=== PATIENT | female | born 1970 ===

== ENCOUNTER 2017-11-10 12:24 | Emergency (ER) | payer SELFPAY ==
[2017-11-10 12:37] VITALS: BP 129/73; PULSE 69; RESP 17; TEMP 98.1; O2SAT 99
[2017-11-10] MEDS ORDERED: DiphenhydrAMINE 12.5 mg/5 ml LIQ UD (5 ml) PO STA (13:13)
--- NOTE | 2017-11-10 13:37 | C.PDOC ---
History Of Present Illness 46 year old female, whose PMHx includes chronic migraines, presents to the ED for evaluation of headache and skin rashes. Patient is from [facility] and states she was treated for her headaches with morphine and was subsequently switched to a Buprenorphine patch. Patient states she experiences palpations, dizziness and goes into "withdrawal" when she does not use her patch. She was evaluated by her PMD today, who referred her to the ED for evaluation of contact dermatitis and detox. Patient denies fever, chills, and has no other complaints at this time. Time Seen by Provider: 11/10/17 12:51 Chief Complaint (Nursing): Abnormal Skin Integrity History Per: Patient History/Exam Limitations: no limitations Onset/Duration Of Symptoms: Days Current Symptoms Are (Timing): Still Present Additional History Per: Patient Past Medical History Reviewed: Historical Data, Nursing Documentation, Vital Signs Vital Signs: Last Vital Signs Temp 98.1 F 11/10/17 12:32 Pulse 69 11/10/17 12:32 Resp 17 11/10/17 12:32 BP 129/73 11/10/17 12:32 Pulse Ox 99 11/10/17 18:14 - Medical History PMH: Migraine Surgical History: No Surg Hx Family History: States: Unknown Family Hx - Social History Hx Alcohol Use: No Hx Substance Use: No - Immunization History Hx Tetanus Toxoid Vaccination: No Hx Influenza Vaccination: No Hx Pneumococcal Vaccination: No Review Of Systems Constitutional: Negative for: Fever, Chills Cardiovascular: Positive for: Palpitations Skin: Positive for: Rash Neurological: Positive for: Headache, Dizziness Physical Exam - Physical Exam Appears: Non-toxic, No Acute Distress Skin: Warm, Dry, Other (erythema to areas underlying patch ) Head: Atraumatic, Normacephalic Eye(s): bilateral: Normal Inspection Oral Mucosa: Moist Neck: Supple Chest: Symmetrical, No Deformity, No Tenderness Cardiovascular: Rhythm Regular Respiratory: Normal Breath Sounds, No Rales, No Rhonchi, No Wheezing Extremity: Normal ROM, Capillary Refill (less than 2 seconds ) Neurological/Psych: Oriented x3, Normal Speech, Normal Cognition ED Course And Treatment O2 Sat by Pulse Oximetry: 99 (on RA) Pulse Ox Interpretation: Normal Medical Decision Making Medical Decision Making: Impression: 46 year old female with c/o headache and skin rash Plan: * CT Head * Benadryl PO * Reglan PO * reassess and disposition Progress: CT Head ordered and reviewed. Benadryl PO and Reglan PO administered. contact dermatitis- will treat supportive request for detox- not candidate for detox as per fellmongery worker. advise output fu. neuro intact pain improved. advise outpt fu return precautions. all info obtained via varying exceptionalities teacher. Disposition - Disposition Referrals: [facility] [Outside] [facility] [Outside] Guzman Brush MD [Staff Provider] - Disposition: HOME/ ROUTINE Disposition Time: 01:00 Condition: STABLE Additional Instructions: please follow up with your doctor/clinic and with specailist. you may need further testing as an outpatient. return to er with worsening symptoms . please discontinue the patches and discuss with your doctor some alternatives. Prescriptions: Acetaminophen/Butalbital/Caf [Fioricet] 1 tab PO Q8 PRN #20 tab PRN Reason: Headache DiphenhydrAMINE [Benadryl] 25 mg PO Q4 PRN #20 cap PRN Reason: Itching / Pruritus Hydrocortisone 1% Oint [Cortizone 1% Oint] 1 appl TP BID #1 tube Instructions: Headache, Adult, Contact Dermatitis (DC) Forms: [employer] (Haitian) Print Language: PAKISTANI - Clinical Impression Clinical Impression: Headache, Desire for detoxification - Scribe Statement The provider has reviewed the documentation as recorded by the Scribe (Beata Garcia) Provider Attestation: All medical record entries made by the Scribe were at my direction and personally dictated by me. I have reviewed the chart and agree that the record accurately reflects my personal performance of the history, physical exam, medical decision making, and the department course for this patient. I have also personally directed, reviewed, and agree with the discharge instructions and disposition.
--- NOTE | 2017-11-10 14:30 | CT ---
PROCEDURE: CT HEAD WITHOUT CONTRAST. HISTORY: nolan COMPARISON: None available. TECHNIQUE: Axial computed tomography images were obtained through the head/brain without intravenous contrast. Radiation dose: Total exam DLP = 863.7 mGy-cm. This CT exam was performed using one or more of the following dose reduction techniques: Automated exposure control, adjustment of the mA and/or kV according to patient size, and/or use of iterative reconstruction technique. FINDINGS: HEMORRHAGE: No intracranial hemorrhage. BRAIN: No mass effect or edema. No atrophy or chronic microvascular ischemic changes. VENTRICLES: Unremarkable. No hydrocephalus. CALVARIUM: Unremarkable. PARANASAL SINUSES: Unremarkable as visualized. No significant inflammatory changes. MASTOID AIR CELLS: Unremarkable as visualized. No inflammatory changes. OTHER FINDINGS: None. IMPRESSION: No acute intracranial pathology.
== END 2017-11-10 15:04 | disposition home or self-care (01) ==
LOC: C.ER 12:24
DX: R51 Headache (principal)

== ENCOUNTER 2017-11-27 11:19 | Inpatient (IN) | payer MEDICAID, SELFPAY ==
[2017-11-27 11:59] LABS: BASO % 0.9 % (0.0-2.0); EOS # 0.1 K/uL (0.0-0.7); EOS % 3.5 % (0.0-4.0); HEMOGLOBIN 13.3 g/dL (11.0-16.0); LYMPH # 1.8 K/uL (1.0-4.3); LYMPH % 43.9 % (20.0-40.0); MEAN CELL VOLUME 81.6 fL (81.0-99.0); MEAN CORPUSCULAR HGB CONC 34.3 g/dL (33.0-37.0); MEAN PLATELET VOLUME 7.7 fL (7.2-11.7); MONO # 0.3 K/uL (0.0-0.8); MONO % 6.8 % (0.0-10.0); NEUT # 1.8 K/uL (1.8-7.0); NEUT % 44.9 % (50.0-75.0); NRBC % 0.3 % (0.0-2.0); RBC 4.76 Mil/uL (3.80-5.20); RED CELL DISTRIBUTION WIDTH 15.8 % (11.5-14.5)
[2017-11-27 12:06] LABS: HCG,QUALITATIVE URINE NEGATIVE (NEGATIVE)
[2017-11-27 12:07] LABS: SQUAMOUS EPITHIAL 3 /hpf (0-5); URINE BACTERIA RARE (<OCC); URINE BILIRUBIN NEGATIVE (NEGATIVE); URINE BLOOD 3+ (NEGATIVE); URINE CLARITY Hazy (Clear); URINE COLOR Red (YELLOW); URINE GLUCOSE (UA) NORMAL (Normal); URINE LEUKOCYTE ESTERASE 3+ Leu/uL (Negative); URINE PROTEIN 2+ mg/dL (NEGATIVE); URINE UROBILINOGEN NORMAL mg/dL (0.2-1.0)
[2017-11-27 12:11] LABS: ALB/GLOB RATIO 1.2 (1.0-2.1); ALBUMIN 4.3 g/dL (3.5-5.0); ALT/SGPT 77 U/L (9-52); AST/SGOT 48 U/L (14-36); BLOOD UREA NITROGEN 17 mg/dL (7-17); GFR AFRICAN-AMERICAN > 60; GFR NON-AFRICAN AMERICAN > 60
--- NOTE | 2017-11-27 12:32 | C.PDOC ---
History Of Present Illness 47 y/o female presents to ED requesting detox from Morphine. Patient has been using Morphine for chronic headaches. She was then changed to the Buprenophine patch which she gets from [facility]. She changes the patch every 72 hours, last put one 3 days ago. Pt admits to feeling anxious and mild headache. Also notes swelling to hands and legs which she reports as secondary to withdrawal. Patient denies fever, chills, SI/HI, chest pain, sob, abdominal pain or any other physical complaints at this time. Time Seen by Provider: 11/27/17 11:28 Chief Complaint (Nursing): Substance Abuse History Per: Patient History/Exam Limitations: no limitations Onset/Duration Of Symptoms: Days Current Symptoms Are (Timing): Still Present Suicide/Self Injury Attempted (Context): None Modifying Factor(s): Narcotics Past Medical History Reviewed: Historical Data, Nursing Documentation, Vital Signs Vital Signs: Last Vital Signs Temp 98.3 F 11/27/17 14:52 Pulse 56 L 11/27/17 14:52 Resp 18 11/27/17 14:52 BP 120/70 11/27/17 14:52 Pulse Ox 100 11/27/17 14:52 - Medical History PMH: Migraine Surgical History: No Surg Hx Family History: States: No Known Family Hx - Social History Hx Alcohol Use: No Hx Substance Use: No - Immunization History Hx Tetanus Toxoid Vaccination: No Hx Influenza Vaccination: No Hx Pneumococcal Vaccination: No Review Of Systems Constitutional: Negative for: Fever, Chills Cardiovascular: Negative for: Chest Pain Respiratory: Negative for: Shortness of Breath Gastrointestinal: Negative for: Nausea, Vomiting Psych: Positive for: Anxiety, Withdrawal. Negative for: Suicidal ideation Physical Exam - Physical Exam Appears: Non-toxic, No Acute Distress Skin: Warm, Dry, No Rash Head: Atraumatic, Normacephalic Eye(s): bilateral: Normal Inspection, EOMI Nose: Normal Oral Mucosa: Moist Neck: Normal ROM, Supple Chest: Symmetrical Cardiovascular: Rhythm Regular Respiratory: Normal Breath Sounds, No Accessory Muscle Use, No Rales, No Rhonchi , No Wheezing Gastrointestinal/Abdominal: Soft, No Tenderness, No Guarding, No Rebound Extremity: Pedal Edema (Upper and lower extremities edema , non pitting, nontender, no erythema), Capillary Refill (<2 sec), No Deformity Neurological/Psych: Oriented x3, Normal Speech, Normal Cognition, Other (no tremor) ED Course And Treatment - Laboratory Results Result Diagrams: 11/27/17 11:54 11/27/17 11:54 O2 Sat by Pulse Oximetry: 100 (ra) Pulse Ox Interpretation: Normal Progress Note: Pt was seen and evalauated by social services assistant who discussed case with Dr Unger and agreed upon admission. On re-evlauation, pt admits to urinary frequency. Notes she is on her menses. Denies dysuria or vaginal discharge. UA evaluated . Macrobid ordered. Pt is medically cleared for admission, peripheral edema should be re-evaluated by medicine. Continue Macrobid. Disposition - Disposition Disposition: HOSPITALIZED Disposition Time: 14:30 Condition: STABLE - Clinical Impression Clinical Impression: Opioid dependence - PA / PROGRAM ADVOCATE / Resident Statement MD/DO has reviewed & agrees with the documentation as recorded. - Scribe Statement The provider has reviewed the documentation as recorded by the Luluibeliud Knight All medical record entries made by the Luluibeliud were at my direction and personally dictated by me. I have reviewed the chart and agree that the record accurately reflects my personal performance of the history, physical exam, medical decision making, and the department course for this patient. I have also personally directed, reviewed, and agree with the discharge instructions and disposition.
[2017-11-27 12:39] LABS: BENZODIAZEPINES, UR NEGATIVE (NEGATIVE); OPIATES, UR NEGATIVE (NEGATIVE); PHENCYCLIDINE, UR NEGATIVE (NEGATIVE)
[2017-11-27 12:58] LABS: BARBITURATES, UR POSITIVE (NEGATIVE)
--- NOTE | 2017-11-27 13:50 | PCM.BM ---
<Bryce Dolan - Last Filed: 11/27/17 13:48> Treatment Plan Problems - Problems identified on initial assessmt potential for opiate withdrawal Date Initiated: 11/27/17 Time Initiated: 13:49 Status: Active Treatment assets and liabiliti Patient Assests: cognitively intact Patient Liabilities: substance abuse, medical problems - Milieu Protocol Maintain good personal hygiene: daily Encourage regular showers, daily Remind patient to perform daily oral care, daily Assist patient to perform ADL's Conduct patient checks and document Observation sheet: Q15 minutes Maintain personal safety: every shift Educate patient to report safety concerns to staff, every shift Monitor environment for contraband/sharps Medication safety: Monitor for expected outcome, potential side effects: every shift, Assess barriers to learning: every shift, Assess readiness for medication education: every shift <Estefani Unger - Last Filed: 11/28/17 21:22> - Diagnosis (1) Opioid dependence Status: Acute Interventions: 11/28/17 21:22 * Assess 7x/week regarding severity of withdrawal * Educate regarding risks, benefits, side effects and alternatives of medications * Use Motivational Interviewing for abstinence * Use CBT for relapse prevention * Medication management for withdrawal symptoms * Encourage medication assisted treatment *
[2017-11-27] MEDS ORDERED: Aluminum Hydroxide/Magnesium Hydroxide Susp (30 mL) PO PRN (14:19)
--- NOTE | 2017-11-28 12:36 | PCM.PSYCH ---
Initial Psychiatric Evaluation - Initial Psychiatric Evaluation Type of Admission: Voluntary Legal Status: Capacity Chief Complaint (in patient's own words): "Morphine" History of Present Illness and Precipitating Events: She is seen, chart reviewed and case discussed. Translation used. Pt is a 47 year old [place] female, with children, referred by Dr. Erickson from [facility], requesting detox from morphine. Pt states that for the last 5 years she was prescribed morphine for headaches in [facility]. Until 08/2017, pt was receiving "6-8 injections of 1 cc in syringe of morphine daily." Pt states prior to returning to the , her physician switched her prescription to morphine 20 mg patches q72 hours. Pt has been compliant with doses, but would like to stop it. Pt could not be detoxed on an outpatient basis as her prescription did not come from a [place] doctor. Pt denies abusing other drugs or alcohol. Pt reports w/d symptoms when she doesn't take morphine. Pt denies S/I; H/I; A/V/T hallucinations. Pt denies psychiatric conditions and treatment. Pt denies medical conditions aside from chronic headaches. Current Medications: Active Medications Generic Name Dose Route Start Last Admin Trade Name Freq PRN Reason Stop Dose Admin Al Hydrox/Mg Hydrox/Simethicone 30 ml 11/27/17 14:19 Maalox 30 Ml PO TID PRN Indigestion / Heartburn Clonidine HCl 0.1 mg 11/27/17 14:19 Catapres PO Q8 PRN COWS Score More or Equal to 5 Gabapentin 100 mg 11/28/17 14:00 Neurontin PO TID FLY Hydroxyzine HCl 50 mg 11/27/17 14:19 Atarax PO Q6H PRN Anxiety Ibuprofen 600 mg 11/27/17 14:16 Motrin Tab PO Q6H PRN Pain, moderate (4-7) Loperamide HCl 2 mg 11/27/17 14:19 Imodium PO Q8 PRN Diarrhea Methadone HCl 20 mg 11/28/17 10:00 11/28/17 10:06 Methadone PO 12/03/17 09:59 20 mg Q24H FLY Administration Taper Nitrofurantoin Macrocrystals 100 mg 11/27/17 19:00 11/28/17 06:45 Macrobid PO 100 mg Q12H FLY Administration Protocol Ondansetron HCl 4 mg 11/27/17 14:19 11/27/17 19:49 Zofran Tab PO 4 mg Q8 PRN Administration Nausea/Vomiting Trazodone HCl 100 mg 11/27/17 22:00 11/27/17 21:15 Desyrel PO 100 mg HS FLY Administration Past Psychiatric History - Past Psychiatric History Previous Treatment History: None Pertinent Medical Hx (Current Medical&Sleep Prob, Allergies): Allergies Allergy/AdvReac Type Severity Reaction Status Date / Time Penicillins Allergy VOMITING Verified 11/10/17 12:32 tramadol Allergy VOMITING Verified 11/10/17 12:32 propofol [From Diprivan] AdvReac VOMITING Verified 11/10/17 12:32 Acetaminophen/Butalbital/Caf [Fioricet] 1 tab PO Q8 PRN #20 tab 11/10/17 Hydrocortisone 1% Oint [Cortizone 1% Oint] 1 appl TP BID #1 tube 11/10/17 Review of Systems - Psychiatric Psychiatric: Abnormal Sleep Pattern, Anxiety, Difficulty Concentrating. absent : Hallucinations, Homicidal Ideation, Suicidal Ideation Mental Status Examination - Personal Presentation Personal Presentation: Looks stated age - Affect Affect: Constricted - Motor Activity Motor Activity: Calm - Reliability in Providing Information Reliability in Providing Information: Good - Speech Speech: Organized - Mood Mood: Anxious - Formal Thought Process Formal Thought Process: No Impairment - Cognitive Functions Orientation: Person, Place, Situation, Time Sensorium: Alert Attention/Concentration: Attentive Estimate of Intelligence: Average Judgement: Intact, as evidence by: Insight regarding need for hospitalization Memory: Recent intact, as evidence by: Ability to recall events of the day, Remote intact, as evidenced by: Abilit to recall sig. life events - Risk Risk: Withdrawal, Diminished functioning - Strength & Assets Inventory Strength & Assets Inventory: Family support, Cooperative - Limitations Limitations: Other DSM 5 DX - DSM 5 DSM 5 Diagnosis: Opioid withdrawal Opioid use d/o- severe - Recommended/Plan of Treatment Treatment Recommendations and Plan of Treatment: Methadone detox As needed medications All risks, benefits and alternatives of medications, including no medications, discussed and the patient understood and agreed. Attend groups and activities Supportive therapy and psychoeducation PR for abstinence CBT for relapse prevention Attend self-help groups as well PR for smoking cessation and patch if needed 34 min Projected ELOS: 4 days Prognosis: good w treatment
[2017-11-29] MEDS: Hydrocortisone 1% Cream (30 GM) TOP SCH (18:16)
--- NOTE | 2017-11-30 00:31 | PCM.PYCHPN ---
Psychiatric Progress Note - Psychiatric Progress Note Patient seen today, length of contact: 16 min Patient Chief Complaint: "OK' Problems Identified/Issues Discussed: The pt is seen, chart reviewed, case discussed with staff. The pt is compliant with medications and reports no side-effects. Symptoms are improving but needs more time to stabilize. Pt attends groups and activities. Support given, psycho-education provided. After care discussed. Medication Change: Yes (detox changes daily) Medical Record Reviewed: Yes Mental Status Examination - Cognitive Function Orientation: Person, Place, Situation, Time Memory: Intact, Impaired Attention: WNL Concentration: WNL Association: WNL Fund of Knowledge: WNL - Mood Mood: Anxious - Affect Affect: Constricted - Speech Speech: Appropriate - Formal Thought Process Formal Thought Process: No Impairment - Suicidal Ideation Suicidal Ideation: No - Homicidal Ideation Homicidal Ideation: No Goal/Treatment Plan - Goal/Treatment Plan Need for Continued Stay: Discharge may exacerbated symptoms, Severe functional impairment Progress Toward Problem(s) and Goals/Treatment Plan: Methadone detox As needed medications All risks, benefits and alternatives of medications, including no medications, discussed and the patient understood and agreed. Attend groups and activities Supportive therapy and psychoeducation RI for abstinence CBT for relapse prevention Attend self-help groups as well RI for smoking cessation and patch if needed Estimated Date of D/C: 12/02/17
[2017-11-30] MEDS: Hydrocortisone 1% Cream (30 GM) TOP SCH ×2 (10:08→18:02)
--- NOTE | 2017-11-30 13:15 | PCM.PYCHPN ---
Psychiatric Progress Note - Psychiatric Progress Note Patient seen today, length of contact: 16 min Patient Chief Complaint: "Better" Problems Identified/Issues Discussed: The pt is seen, chart reviewed, case discussed with staff. Support and psychoeducation given, CBT and NV used briefly No new symptoms reported, improving slowly and needs more time No SEs from medications, risks discussed. After care discussed Medication Change: Yes (detox changes daily) Medical Record Reviewed: Yes Mental Status Examination - Cognitive Function Orientation: Person, Place, Situation, Time Memory: Intact, Impaired Attention: WNL Concentration: WNL Association: WNL Fund of Knowledge: WNL - Mood Mood: Anxious - Affect Affect: Constricted - Speech Speech: Appropriate - Formal Thought Process Formal Thought Process: No Impairment - Suicidal Ideation Suicidal Ideation: No - Homicidal Ideation Homicidal Ideation: No Goal/Treatment Plan - Goal/Treatment Plan Need for Continued Stay: Discharge may exacerbated symptoms, Severe functional impairment Progress Toward Problem(s) and Goals/Treatment Plan: Methadone detox As needed medications All risks, benefits and alternatives of medications, including no medications, discussed and the patient understood and agreed. Attend groups and activities Supportive therapy and psychoeducation NV for abstinence CBT for relapse prevention Attend self-help groups as well NV for smoking cessation and patch if needed Estimated Date of D/C: 12/02/17
[2017-12-01] MEDS: Hydrocortisone 1% Cream (30 GM) TOP SCH ×2 (09:31→17:35)
--- NOTE | 2017-12-01 11:59 | PCM.PYCHPN ---
Psychiatric Progress Note - Psychiatric Progress Note Patient seen today, length of contact: 15 min Patient Chief Complaint: "I'm fine today" Problems Identified/Issues Discussed: The pt is seen, chart reviewed, case discussed with staff. The pt is compliant with medications and reports no side-effects. Symptoms are improving but needs more time to stabilize. Pt attends groups and activities. Support given, psycho-education provided. After care discussed. Medical closing agent used as always Medication Change: Yes (detox changes daily) Medical Record Reviewed: Yes Mental Status Examination - Cognitive Function Orientation: Person, Place, Situation, Time Memory: Intact, Impaired Attention: WNL Concentration: WNL Association: WN Fund of Knowledge: WNL - Mood Mood: Anxious - Affect Affect: Constricted - Speech Speech: Appropriate - Formal Thought Process Formal Thought Process: No Impairment - Suicidal Ideation Suicidal Ideation: No - Homicidal Ideation Homicidal Ideation: No Goal/Treatment Plan - Goal/Treatment Plan Need for Continued Stay: Discharge may exacerbated symptoms, Severe functional impairment Progress Toward Problem(s) and Goals/Treatment Plan: Methadone detox As needed medications All risks, benefits and alternatives of medications, including no medications, discussed and the patient understood and agreed. Attend groups and activities Supportive therapy and psychoeducation [place] for abstinence CBT for relapse prevention Attend self-help groups as well [place] for smoking cessation and patch if needed Estimated Date of D/C: 12/02/17
--- NOTE | 2017-12-02 08:50 | PCM.PYCHDC ---
Mental Status Examination - Mental Status Examination Orientation: Person Discharge Summary - Discharge Note Consultations:: List each consultation separately and include: 1. Reason for request. 2. Findings. 3. Follow-up Summary of Hospital Course include:: 1. Description of specific treatment plan utilized for patients during their course of treatmen. 2. Summarize the time- course for resolution of acute symptoms and/or regressed behaviors. 3. Describe issues identified and worked on during hospitalization. 4. Describe medication utilized. 5. Describe medical problems identified and treated. 6. Reassessment of suicide risk Summary of Hospital Course: She is seen, chart reviewed and case discussed. Translation used. Pt is a 47 [address] [facility] female, with children, referred by Dr. Erickson from [facility], requesting detox from morphine. Pt states that for the last 5 years she was prescribed morphine for headaches in [facility]. Until 08/2017, pt was receiving "6-8 injections of 1 cc in syringe of morphine daily." Pt states prior to returning to the , her physician switched her prescription to morphine 20 mg patches q72 hours. Pt has been compliant with doses, but would like to stop it. Pt could not be detoxed on an outpatient basis as her prescription did not come from a [place] doctor. Pt denies abusing other drugs or alcohol. Pt reports w/d symptoms when she doesn't take morphine. Pt denies S/I; H/I; A/V/T hallucinations. Pt denies psychiatric conditions and treatment. Pt denies medical conditions aside from chronic headaches. [facility] for pain management. - Diagnosis (1) Opioid dependence Current Visit: Yes Status: Acute - Final Diagnosis (DSM 5) Condition upon Discharge: STABLE Disposition: HOME/ ROUTINE Follow-up Treatment Plan: Methadone detox As needed medications All risks, benefits and alternatives of medications, including no medications, discussed and the patient understood and agreed. Attend groups and activities Supportive therapy and psychoeducation [place] for abstinence CBT for relapse prevention Attend self-help groups as well [place] for smoking cessation and patch if needed
[2017-12-02 09:22] VITALS: BP 107/66; PULSE 65; RESP 17; TEMP 98; O2SAT 98
[2017-12-02] MEDS: Hydrocortisone 1% Cream (30 GM) TOP SCH (10:02)
== END 2017-12-02 10:15 | disposition home or self-care (01) | DRG 895 ==
LOC: C.ER 11:19 → C.7D 13:32
PROVIDERS: ADMIT Psychiatry & Neurology Psychiatry; ATTEND Psychiatry & Neurology Psychiatry
PROC: HZ2ZZZZ Detoxification Services for Substance Abuse Treatment (ICD-10-PCS; principal; 2017-11-27)
PROC: HZ59ZZZ Individual Psychotherapy for Substance Abuse Treatment, Supportive (ICD-10-PCS; 2017-11-27)
PROC: HZ81ZZZ Medication Management for Substance Abuse Treatment, Methadone Maintenance (ICD-10-PCS; 2017-11-27)
PROC: HZ46ZZZ Group Counseling for Substance Abuse Treatment, Psychoeducation (ICD-10-PCS; 2017-11-27)
DX: F11.23 Opioid dependence with withdrawal (principal)

== ENCOUNTER 2017-12-05 22:10 | Emergency (ER) | payer SELFPAY ==
[2017-12-05 22:38] VITALS: TEMP 98.2; O2SAT 99
--- NOTE | 2017-12-05 23:06 | C.PDOC ---
Time Seen by Provider: 12/05/17 22:57 Chief Complaint (Nursing): Anxiety Past Medical History Vital Signs: Last Vital Signs Temp 98.2 F 12/05/17 22:33 Pulse 60 12/05/17 22:33 Resp 20 12/05/17 22:33 BP 113/75 12/05/17 22:33 Pulse Ox 99 12/05/17 22:33 - Medical History PMH: Migraine Denies: Diabetes, Hepatitis, HIV, HTN, Seizures, Sexually Transmitted Disease - [facility] Procedures DETOXIFICATION SERVICES FOR SUBSTANCE ABUSE TREATMENT (11/27/17) GROUP LABOR RELATIONS CONSULTANT FOR SUBSTANCE ABUSE TREATMENT, PSYCHOEDUCATION (11/27/17) INDIV PSYCHOTHERAPY FOR SUBSTANCE ABUSE TREATMENT, SUPPORT (11/27/17) MEDS MGMT FOR SUBSTANCE ABUSE TREATMENT, METHADONE MAINT (11/27/17) Family History: States: Unknown Family Hx - Social History Hx Alcohol Use: No Hx Substance Use: Yes - Immunization History Hx Tetanus Toxoid Vaccination: No Hx Influenza Vaccination: No Hx Pneumococcal Vaccination: No ED Course And Treatment O2 Sat by Pulse Oximetry: 99 Medical Decision Making Medical Decision Making: tremors, anxiety just completed detox from morphine patch 11/27- d/w Crisis, no repeat detox at this time VSS and exam normal, no tremors 2nd dose of Trazadone for tonight encouraged and Tylenol/motrin PRN Disposition Doctor Will See Patient In The: Office Counseled Patient/Family Regarding: Studies Performed, Diagnosis - Disposition Disposition: HOME/ ROUTINE Disposition Time: 23:06 Condition: GOOD - Clinical Impression Clinical Impression: Anxiety
[2017-12-05 23:26] VITALS: BP 111/66; PULSE 74; RESP 16
== END 2017-12-05 23:24 | disposition home or self-care (01) ==
LOC: C.ER 22:10
DX: F41.9 Anxiety disorder, unspecified (principal)

== ENCOUNTER 2018-09-27 09:42 | Outpatient (CLI) | payer OTHER | END 2018-09-27 09:43 | disposition home or self-care (01) | LOC: C.MAMMO 09:42 | DX: N64.4 Mastodynia (principal) ==